=== PATIENT | male | born 1975 | race Caucasian/White ===

== ENCOUNTER 2020-03-03 15:28 | Emergency (ER) | payer OTHER ==
[2020-03-03 15:35] VITALS: BP 145/96; PULSE 85; RESP 18; TEMP 98.2
[2020-03-03] MEDS ORDERED: LIDOCAINE 1% INJ 10MG/ML (20 ML MDV) SQ ONE (15:36)
--- NOTE | 2020-03-03 16:08 | ED ---
General Adult HPI - General Chief complaint: Skin/Abscess/Foreign Body Stated complaint: Fish hook in hand Time Seen by Provider: 03/03/20 15:36 Source: patient, RN notes reviewed Mode of arrival: ambulatory Limitations: no limitations - History of Present Illness Initial comments: 45-year-old male presents to the emergency department for a chief complaint of foreign body and the right hand. Patient states he was fishing when he got a fishhook caught in the thenar eminence of the right hand. Patient denies any difficulty moving his hand. States he did try to get it out on his own but could not. Tetanus is up-to-date within the past 5 years.Patient has no other complaints at this time including shortness of breath, chest pain, abdominal pain, nausea or vomiting, headache, or visual changes. - Related Data Previous Rx's Medication Instructions Recorded Cephalexin [Keflex] 500 mg PO Q6HR 7 Days #28 cap 03/03/20 Allergies Allergy/AdvReac Type Severity Reaction Status Date / Time No Known Allergies Allergy Verified 03/03/20 15:32 Review of Systems ROS Statement: Those systems with pertinent positive or pertinent negative responses have been documented in the HPI. ROS Other: All systems not noted in ROS Statement are negative. Past Medical History Past Medical History: No Reported History History of Any Multi-Drug Resistant Organisms: None Reported Past Surgical History: No Surgical Hx Reported Past Psychological History: No Psychological Hx Reported Smoking Status: Never smoker Past Alcohol Use History: None Reported Past Drug Use History: None Reported General Exam Limitations: no limitations General appearance: alert, in no apparent distress Head exam: Present: atraumatic, normocephalic, normal inspection Eye exam: Present: normal appearance, PERRL, EOMI. Absent: scleral icterus, conjunctival injection, periorbital swelling ENT exam: Present: normal exam, mucous membranes moist Neck exam: Present: normal inspection, full ROM. Absent: tenderness, meningismus, lymphadenopathy Respiratory exam: Present: normal lung sounds bilaterally. Absent: respiratory distress, wheezes, rales, rhonchi, stridor Cardiovascular Exam: Present: regular rate, normal rhythm, normal heart sounds. Absent: systolic murmur, diastolic murmur, rubs, gallop, clicks Extremities exam: Present: other (Patient has fishhook stuck in the thenar eminence of the right hand. Neurovascular status intact.) Course Vital Signs 03/03/20 15:33 Temperature 98.2 F Pulse Rate 85 Respiratory 18 Rate Blood Pressure 145/96 O2 Sat by Pulse 97 Oximetry Medical Decision Making - Medical Decision Making Area was cleaned. Stroud was superficial and aren't was advanced forward through the skin and removed from the rest of the foot. The hook was then retracted out of the thenar eminence. Patient was started on Keflex. He will return here for any worsening symptoms. Discussed strict return parameters for infection. Disposition Clinical Impression: Stroud injury to finger Disposition: HOME SELF-CARE Condition: Good Instructions (If sedation given, give patient instructions): Laceration (ED) Additional Instructions: Please clean the area thoroughly a couple times daily. Please monitor for signs of infection such as redness, swelling, drainage, fever and return if these occur. Otherwise follow-up with primary care in 1-2 days for a recheck. Antibiotics were sent to your pharmacy. Prescriptions: Cephalexin [Keflex] 500 mg PO Q6HR 7 Days #28 cap Is patient prescribed a controlled substance at d/c from ED?: No Referrals: None,Stated [Primary Care Provider] - 1-2 days Time of Disposition: 16:06
== END 2020-03-03 16:17 | disposition home or self-care (01) ==
LOC: EC 15:28
DX: S61.441A Puncture wound with foreign body of right hand, initial encounter (principal); W45.8XXA Other foreign body or object entering through skin, initial encounter
CPT/HCPCS: 99283; J2001